=== PATIENT | male | born 1975 | race Caucasian/White ===

== ENCOUNTER 2023-02-04 06:33 | Emergency (ER) | payer BC, OTHER ==
[2023-02-04 06:42] VITALS: BP 148/90; PULSE 60; RESP 22
[2023-02-04 07:01] LABS: Basophils % (A) 0 %; Eosinophils # (A) 0.1 k/uL (0-0.7); Eosinophils % (A) 1 %; HGB 14.4 gm/dL (13.0-17.5); Lymphocytes # (A) 1.8 k/uL (1.0-4.8); Lymphocytes % (A) 16 %; MCH 31.1 pg (25.0-35.0); MCHC 35.1 g/dL (31.0-37.0); MCV 88.7 fL (80.0-100.0); Mean Platelet Volume 7.7; Monocytes # (A) 0.4 k/uL (0-1.0); Monocytes % (A) 4 %; Neutrophils # (A) 8.7 k/uL (1.3-7.7); Neutrophils % (A) 79 %; Platelet Count 270 k/uL (150-450); RBC 4.62 m/uL (4.30-5.90); RDW 13.1 % (11.5-15.5); WBC 11.1 k/uL (3.8-10.6)
[2023-02-04 07:10] LABS: ALT 320 U/L (4-49); AST 388 U/L (17-59); African American GFR (CKD) >90 (>60 ml/min/1.73 sqM); Albumin 4.3 g/dL (3.5-5.0); Alcohol <10 mg/dL; Alkaline Phosphatase 74 U/L (38-126); Anion Gap 5 mmol/L; Blood Urea Nitrogen 16 mg/dL (9-20); Calcium 9.2 mg/dL (8.4-10.2); Carbon Dioxide 32 mmol/L (22-30); Chloride 102 mmol/L (98-107); Glucose 131 mg/dL (74-99); Non-African American GFR(CKD) >90 (>60 ml/min/1.73 sqM); Potassium 3.9 mmol/L (3.5-5.1); Sodium 139 mmol/L (137-145); Total Bilirubin 0.7 mg/dL (0.2-1.3)
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
[2023-02-04] MEDS ORDERED: LIDOCAINE 1% INJ 10MG/ML (30 ML VIAL-PF) SQ ONE (07:34)
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
[2023-02-04] MEDS ORDERED: MORPHINE SULFATE 4 MG/ML SYRINGE IVP STA (07:44)
[2023-02-04 07:54] LABS: Partial Thromboplastin Time 20.7 sec (22.0-30.0)
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
[2023-02-04] MEDS ORDERED: HYDROmorphone 1 MG/ML 1 ML SYRINGE IVP STA (08:09)
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
== END 2023-02-04 08:47 | disposition other institution (70) ==
LOC: EC 06:33
DX: S02.0XXA Fracture of vault of skull, initial encounter for closed fracture (principal); S22.41XA Multiple fractures of ribs, right side, initial encounter for closed fracture; S27.339A Laceration of lung, unspecified, initial encounter; S36.116A Major laceration of liver, initial encounter; I10 Essential (primary) hypertension; Z86.59 Personal history of other mental and behavioral disorders; V29.99XA Rider (driver) (passenger) of other motorcycle injured in unspecified traffic accident, initial encounter; Y92.410 Unspecified street and highway as the place of occurrence of the external cause
CPT/HCPCS: 99291 ×2; 96365 ×2; 96375 ×2; 12001 ×2; 36415; 93005; 86900; 86901; 80053; 83605; 84484; 85025; 85610; 85730; 86850; 80320; 73130; 72170; 73020; 71045; 72125; 70450; 71260; 74177; J0690; J2001; J1170; Q9967

== ENCOUNTER → 2023-11-14 | Outpatient (CLI) | payer BC ==
--- NOTE | 2023-11-15 21:58 | MR ---
MRI CERVICAL SPINE: CLINICAL HISTORY: Neck pain into Left arm/hand x2 months, Numbness left fingers, Headaches. Cervicalg ia TECHNIQUE: Multiplanar, multisequence imaging of the cervical spine is performed without IV contrast. COMPARISON: CT cervical spine February 04, 2023 FINDINGS: Sagittal images of the cervical spine show the craniocervical junction to remain within nor mal limits. The cervical and upper thoracic spinal cord is normal in course, caliber, and signal. Pe rsistent grade 1 retrolisthesis C5 on C6. The vertebral body heights are normal. Mild to moderate di sc space narrowing and spurring at C5-C6 level is redemonstrated. The bone marrow signal intensity is within normal limits. Axial images show C2-C3 level to appear within normal limits. Axial images at C3-C4 level show right-sided uncovertebral facet spurring causing asymmetric mild to moderate right-sided neural foraminal narrowing. Axial images at C4-C5 level show predominantly left-sided uncovertebral facet spurring causing mild l eft-sided neural foraminal narrowing. Axial images at C5-C6 level shows spondylolisthesis with broad-based posterior disc protrusion effaci ng the anterior thecal sac and causing mild to moderate right greater than left bilateral neural fora randy narrowing. Axial images at C6-C7 and C7-T1 levels appear within normal limits. IMPRESSION: Multilevel degenerative change greatest involving C5-C6 level as detailed above.
== END | disposition home or self-care (01) ==
LOC: RADMRIMAIN 16:41
PROVIDERS: ATTEND Family Medicine
DX: M47.812 Spondylosis without myelopathy or radiculopathy, cervical region (principal); M54.2 Cervicalgia
CPT/HCPCS: 72141